=== PATIENT | female | born 1990 | race Caucasian/White ===

== ENCOUNTER 2021-05-26 21:30 | Emergency (ER) | payer OTHER ==
[2021-05-26 21:49] VITALS: BP 123/71; PULSE 79; TEMP 98.1; BMI 29.7
[2021-05-26] MEDS ORDERED: guaiFENesin/D-METHORPHAN HB 10 ML UNIT-DOSE CUPS PO ONE (22:12)
[2021-05-26] MEDS ORDERED: guaiFENesin/D-METHORPHAN HB 10 ML UNIT-DOSE CUPS ONE (22:38)
== END 2021-05-26 23:18 | disposition home or self-care (01) ==
LOC: JER 21:30
DX: J06.9 Acute upper respiratory infection, unspecified (principal); R05.9 Cough, unspecified; R09.81 Nasal congestion
CPT/HCPCS: 71046-TC-FY; 99284-25

== ENCOUNTER 2021-09-22 13:52 | Emergency (ER) | payer OTHER ==
[2021-09-22 13:58] VITALS: BP 118/78; PULSE 90; TEMP 97.2; BMI 30.9
== END 2021-09-22 14:33 | disposition home or self-care (01) ==
LOC: JERFT 13:52 → JER 13:52 → JERFT 14:33
DX: N64.4 Mastodynia (principal)
CPT/HCPCS: 99283-25

== ENCOUNTER 2022-07-29 12:27 | Emergency (ER) | payer OTHER ==
[2022-07-29 12:40] VITALS: BP 104/57; PULSE 78; RESP 20; TEMP 98.1; BMI 32.0
[2022-07-29] MEDS ORDERED: IBUPROFEN 600 MG TABLET (FP) PO ONE ×2 (13:27→13:33)
== END 2022-07-29 13:37 | disposition home or self-care (01) ==
LOC: JERFT 12:27
DX: M25.561 Pain in right knee (principal)
CPT/HCPCS: 73562-TC-RT-FY; 99283-25